=== PATIENT | male | born 1990 | race Caucasian/White ===

== ENCOUNTER 2017-08-06 09:20 | Emergency (ER) | payer OTHER ==
[~2017-08-06] VITALS: Wt 68.1 kg
--- NOTE | 2017-08-06 10:00 | NUR ---
Pt's father speaks to this nurse and requests that family dye penetrant testing technician be notified that he was requesting a blessing for the sick for his son and that pt was in agreement. Fr Infante is notified and arrives and visits w/ pt and his father, giving pt a blessing for the sick.
[2017-08-06 10:09] LABS: EOS % 0.2 % (0.0-4.0); HEMATOCRIT 42.4 % (42.0-52.0); HEMOGLOBIN 14.7 g/dL (13.5-18.0); LYMPH# 1.5 (1.50-4.00); MEAN CELL VOLUME 85 fl (78-100); MEAN CORPUSCULAR HEMOGLOBIN 29 pg (27-31); MEAN CORPUSCULAR HGB CONC 35 g/dL (33-37); MEAN PLATELET VOLUME 10.8 fl (7.4-10.4); MONO # 0.9 (0.20-0.80); NEU # 6.3 (1.40-6.50); PLATELET COUNT 220 K/mm3 (130-400); RED BLOOD COUNT 5.02 M/mm3 (4.20-5.60); RED CELL DISTRIBUTION WIDTH 12.4 % (11.5-14.5); WHITE BLOOD COUNT 8.8 K/mm3 (4.8-10.8)
[2017-08-06 10:25] LABS: BUN/CREATININE RATIO 20.4 (6.0-26.0); CARBON DIOXIDE 25 mmol/L (22-30); GLUCOSE 96 mg/dL (75-110); POTASSIUM 3.8 mmol/L (3.6-5.0); SODIUM 131 mmol/L (137-145); TOTAL PROTEIN 7.8 g/dL (6.3-8.2)
[2017-08-06 10:26] LABS: ALCOHOL IN-HOUSE < 10 mg/dL
[2017-08-06 10:35] LABS: ALBUMIN 4.6 g/dL (3.5-5.0); ALT/SGPT 53 U/L (21-72); AST-SGOT 40 U/L (17-59); CALCIUM 9.8 mg/dL (8.4-10.2); TOTAL BILIRUBIN 1.2 mg/dL (0.2-1.3)
[2017-08-06 10:37] LABS: ACETAMINOPHEN < 4 ug/mL (10-30)
[2017-08-06 10:38] LABS: PH-URINE 6.5 (5.0 - 8.0); URINE APPEARANCE CLEAR; URINE BILIRUBIN NEGATIVE (NEGATIVE); URINE BLOOD NEGATIVE (NEGATIVE); URINE COLOR YELLOW; URINE GLUCOSE NEGATIVE (NEGATIVE); URINE KETONE NEGATIVE (NEGATIVE); URINE LEUKOCYTE ESTERASE NEGATIVE (NEGATIVE); URINE NITRATE NEGATIVE (NEGATIVE); URINE PROTEIN(semi-quant) TRACE mg/dL (NEGATIVE); URINE UROBILINOGEN NORMAL (NORMAL); URINE WBC 0-1 /hpf (0-3)
[2017-08-06 16:39] VITALS: BP 130/90
== END 2017-08-06 17:07 ==
LOC: ED 09:20
PROVIDERS: Physician Assistant
DX: F29 Unspecified psychosis not due to a substance or known physiological condition (principal); F22 Delusional disorders; Z87.820 Personal history of traumatic brain injury